=== PATIENT | female | born 1965 | race Caucasian/White ===

== ENCOUNTER 2017-11-21 12:43 | Emergency (ER) | payer SELFPAY ==
[2017-11-21 12:49] VITALS: BP 148/81
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
[2017-11-21 14:43] LABS: ABSOLUTE BASOPHILS # (AUTO) 0.1 10^3/uL (0.0-0.2); ABSOLUTE EOSINOPHILS # (AUTO) 0.1 10^3/uL (0.0-0.6); ABSOLUTE LYMPHOCYTES (AUTO) 2.7 10^3/uL (0.5-4.7); ABSOLUTE MONOCYTES (AUTO) 0.5 10^3/uL (0.1-1.4); ABSOLUTE NEUT (AUTO) 3.8 10^3/uL (1.7-8.2); BASOPHILS % (AUTO) 1.1 % (0-2); EOSINOPHILS % (AUTO) 1.6 % (0-6); HEMATOCRIT 44.6 % (36.0-47.0); HEMOGLOBIN 15.3 g/dL (12.0-15.5); LYMPHOCYTES % (AUTO) 37.5 % (13-45); MEAN CORPUSCULAR HEMOGLOBIN 30.6 pg (27.0-33.4); MEAN CORPUSCULAR HGB CONC 34.4 g/dL (32.0-36.0); MEAN CORPUSCULAR VOLUME 89 fl (80-97); MONOCYTES % (AUTO) 6.9 % (3-13); PLATELET COUNT 228 10^3/uL (150-450); RED BLOOD COUNT 5.01 10^6/uL (3.72-5.28); RED CELL DISTRIBUTION WIDTH 13.4 % (11.5-14.0); SEGMENTED NEUTROPHILS % (AUTO) 52.9 % (42-78); TOTAL CELLS COUNTED % (AUTO) 100 %; WHITE BLOOD COUNT 7.3 10^3/uL (4.0-10.5)
[2017-11-21 15:02] LABS: ALANINE AMINOTRANSFERASE 55 U/L (9-52); ALBUMIN 4.7 g/dL (3.5-5.0); ALKALINE PHOSPHATASE 94 U/L (38-126); ANION GAP 12 (5-19); ASPARTATE AMINO TRANSFERASE 43 U/L (14-36); BILIRUBIN,DIRECT 0.4 mg/dL (0.0-0.4); BILIRUBIN,TOTAL 0.7 mg/dL (0.2-1.3); BLOOD UREA NITROGEN 14 mg/dL (7-20); CALCIUM 9.4 mg/dL (8.4-10.2); CARBON DIOXIDE 26 mmol/L (22-30); CHLORIDE 103 mmol/L (98-107); GLUCOSE 86 mg/dL (75-110); POTASSIUM 4.1 mmol/L (3.6-5.0); SODIUM 141.2 mmol/L (137-145); TOTAL PROTEIN 8.1 g/dL (6.3-8.2)
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
[2017-11-21] MEDS ORDERED: CEPHALEXIN 500 MG CAPSULE PO ONE (15:19)
--- NOTE | 2017-11-21 16:09 | RADIOLOGY REPORT (SQ) ---
EXAM DESCRIPTION: CT FACIAL AREA WITHOUT COMPLETED DATE/TIME: 11/21/2017 3:50 pm REASON FOR STUDY: cheek implant infection, hole to outside of face COMPARISON: None. TECHNIQUE: Noncontrasted images through the facial bones and orbits windowed for bone and soft tissu e. Additional coronal and sagittal reconstructed images reviewed. All images stored on PACS. All CT scanners at this facility use dose modulation, iterative reconstruction, and/or weight based d osing when appropriate to reduce radiation dose to as low as reasonably achievable (ALARA). [facility]: Dose Right [facility]: CareDose [facility]: Dose Right [facility]: Teradose 4D [facility]: Smart Major Aide RADIATION DOSE: CT Rad equipment meets quality standard of care and radiation dose reduction techniq ues were employed. CTDIvol: 30.4 mGy. DLP: 581 mGy-cm. mGy. LIMITATIONS: None. FINDINGS: On the left side, patient has a faintly radiodense cheek implant ventral to the anterior w all left maxillary sinus and left zygoma, best shown on axial images 33-37. There is minimal calcifi cation/ossification along the ventral edge of the left cheek implant. Adjacent left maxillary sinus and zygoma are unremarkable. On the right side, a cheek implant is present. However this appears to have eroded through the anter ior wall of the right maxillary sinus with the medial edge of the implant in the sinus itself, extend ing down to the anteroinferior right maxillary sinus/hard palate. There are air bubbles along the pr osthesis, with circumferential mucous membrane thickening and fluid in the right maxillary sinus. Fi ndings are worrisome for infection, and are best shown on axial images 30 through 39, coronal images 15 through 19, and sagittal images 14-21. FACIAL BONES: No fracture or bone lesion. ORBITS: Intact. No fracture. Symmetric intact globes and retroorbital soft tissues. PARANASAL SINUSES: Right maxillary sinus near completely opacified with fluid and mucous membrane thi ckening. Paranasal sinuses are otherwise clear. No nasal polyps. Maxillary sinus outlets are patent . SOFT TISSUES: Right cheek/premaxillary soft tissue findings as above INFERIOR BRAIN: Limited view. No acute findings. OTHER: No other significant finding. IMPRESSION: Right-sided migration of a premaxillary cheek implant, now resides in the right maxillar y sinus anterior inferior aspect. Circumferential mucous membrane thickening and fluid in the right maxillary sinus with few air bubbles worrisome for infection. TECHNICAL DOCUMENTATION: JOB ID: [id number] Quality ID # [id number]: Final reports with documentation of one or more dose reduction techniques (e.g., Au tomated exposure control, adjustment of the mA and/or kV according to patient size, use of iterative reconstruction technique) 2010 [employer]- All Rights Reserved Reading location - IP/workstation name: [facility]
== END 2017-11-21 17:01 | disposition home or self-care (01) ==
LOC: ER 12:43
DX: T85.79XA Infection and inflammatory reaction due to other internal prosthetic devices, implants and grafts, initial encounter (principal); Y82.8 Other medical devices associated with adverse incidents; F17.200 Nicotine dependence, unspecified, uncomplicated; H53.8 Other visual disturbances
CPT/HCPCS: 36415; 70486; 80053; 85025; 99284